=== PATIENT | female | born 1960 | race Caucasian/White ===

== ENCOUNTER 2018-06-15 16:48 | Emergency (ER) | payer OTHER ==
[2018-06-15 17:10] LABS: ADD MAN DIFF? NO
[2018-06-15] MEDS: SOD CHLORIDE 0.9% 100 ML (17:12)
[2018-06-15] MEDS: IOHEXOL 100 ML (17:12)
[2018-06-15 17:14] LABS: BASOPHILS % 0.5 % (0.0-2.0); EOSINOPHILS # 0.2 10^3/ul (0.0-0.5); EOSINOPHILS % 3.1 % (0.0-7.0); HEMATOCRIT 36.8 % (37.0-47.0); HEMOGLOBIN 12.5 g/dl (12.0-16.0); LYMPHOCYTES # 2.1 10^3/ul (0.8-2.9); LYMPHOCYTES % 36.6 % (15.0-51.0); MEAN CORPUSCULAR HEMOGLOBIN 30.1 pg (29.0-33.0); MEAN CORPUSCULAR VOLUME 88.7 fl (82.0-101.0); MEAN PLATELET VOLUME 9.9 fl (7.4-10.4); MONOCYTE # 0.5 10^3/ul (0.3-0.9); MONOCYTES % 7.8 % (0.0-11.0); NEUTROPHILS % 51.7 % (39.0-77.0); PLATELET COUNT 197 10^3/UL (140-415); RED BLOOD COUNT 4.15 10^6/ul (4.20-5.40); RED CELL DISTRIBUTION WIDTH 13.4 % (11.5-14.5)
[2018-06-15 17:14] LABS: WHITE BLOOD COUNT 5.8 10^3/ul (4.8-10.8)
[2018-06-15] MEDS: SOD CHLORIDE 0.9% 1,000 ML IV (17:31)
[2018-06-15] MEDS: LABETALOL HCL 20MG INJ IV (17:32)
[2018-06-15 17:33] LABS: ANION GAP 13 (8-16); BLOOD UREA NITROGEN 17 mg/dl (7-20); CALCIUM 9.8 mg/dl (8.4-10.2); CARBON DIOXIDE 28 mmol/L (21-31); CHLORIDE 107 mmol/L (97-110); CHOL/HDL RATIO 4.1 RATIO; CHOLESTEROL 137 mg/dl (100-200); CREATINE KINASE 107 IU/L (23-200); CREATININE 0.88 mg/dl (0.44-1.00); GLUCOSE 102 mg/dl (70-220); HDL CHOLESTEROL 33 mg/dl (37-92); INR 1.02; LDL CHOLESTEROL,CALCULATED 81 mg/dl; POTASSIUM 3.6 mmol/L (3.5-5.1); PROTIME 13.5 Sec (11.9-14.9); PT RATIO 1.1; SODIUM 144 mmol/L (135-144); TRIGLYCERIDES 114 mg/dl (0-149)
[2018-06-15 17:34] LABS: PARTIAL THROMBOPLASTIN TIME 29.5 Sec (23.0-35.0)
[2018-06-15 17:39] LABS: ETHANOL < 10.0 mg/dl
[2018-06-15 17:44] LABS: CK INDEX 0.7; CK-MB 0.76 ng/ml (0.0-2.4); TROPONIN-I < 0.012 ng/ml (0.000-0.120)
[2018-06-15] MEDS ORDERED: hydrALAzine 20 MG INJ (17:56)
[2018-06-15] MEDS ORDERED: SOD CHLORIDE 0.9% 50 ML IV (18:00)
[2018-06-15] MEDS: hydrALAzine 20 MG INJ IV (18:00)
[2018-06-15] MEDS: ALTEPLASE (tPA) 1 MG/ML BOLUS SYG IV* (18:02)
[2018-06-15] MEDS: ALTEPLASE 100 MG INJ IV* (18:15)
[2018-06-15 18:40] LABS: ADD UMIC YES; UR ASCORBIC ACID NEGATIVE (NEGATIVE); UR BILIRUBIN (Dip) NEGATIVE (NEGATIVE); UR BLOOD (Dip) NEGATIVE (NEGATIVE); UR CLARITY CLEAR (CLEAR); UR COLOR YELLOW (YELLOW); UR GLUCOSE (Dip) NEGATIVE (NEGATIVE); UR KETONES (Dip) NEGATIVE (NEGATIVE); UR LEUKOCYTE ESTERASE (Dip) TRACE Leu/ul (NEGATIVE); UR NITRITE (Dip) NEGATIVE (NEGATIVE); UR RBC 0 /HPF (0-5); UR TOTAL PROTEIN (Dip) NEGATIVE (NEGATIVE); UR UROBILINOGEN (Dip) NEGATIVE (NEGATIVE); UR WBC 1 /HPF (0-5)
[2018-06-15 18:53] LABS: AMPHETAMINE/METHAMPHETAMINE Negative (NEGATIVE); BARBITURATES Negative (NEGATIVE); BENZODIAZEPINES Negative (NEGATIVE); CANNABINOIDS Negative (NEGATIVE); COCAINE Negative (NEGATIVE); OPIATES Negative (NEGATIVE)
== END 2018-06-15 18:38 | disposition short-term general hospital (02) ==
LOC: E/R 16:48
DX: I63.9 Cerebral infarction, unspecified (principal); I16.9 Hypertensive crisis, unspecified; I10 Essential (primary) hypertension; Z79.82 Long term (current) use of aspirin
CPT/HCPCS: 36415; 70450; 70496; 70498; 71045; 80048; 80061; 80307; 81001; 82550; 82553; 83036; 84484; 85025; 85610; 85730; 93005; 96374; 96375; 99291-25